=== PATIENT | female | born 1970 | race Caucasian/White ===

== ENCOUNTER 2016-11-14 07:15 | Day surgery (SDC) | payer OTHER ==
[~2016-11-14] VITALS: Ht 177.8 cm; Wt 82.4 kg
[2016-11-14] MEDS ORDERED: SODIUM BICARBONATE 4.2%, 5ML ONE (07:57)
[2016-11-14] MEDS ORDERED: LIDOCAINE 2%, 20ML ONE (07:57)
[2016-11-14 08:00] VITALS: BP 121/81
[2016-11-14] MEDS ORDERED: SODIUM CHLORIDE 0.9% 1,000 ML IV SCH (08:03)
[2016-11-14 10:33] LABS: GLUCOSE, CSF 53 mg/dL (40-80)
[2016-11-20 15:07] LABS: ALBUMIN CSF 20 mg/dL (11-48); ALBUMIN SERUM 4.3 g/dL (3.5-5.5); CSF IGG INDEX 0.5 (0.0-0.7); CSF/SERUM ALBUMIN INDEX 5 (0-8); IGG SERUM 888 mg/dL (700-1600); IGG SYNTHESIS RATE CSF -1.6 mg/day (-9.9 TO +3.3); IGG/ALBUMIN RATIO CSF 0.11 (0.00-0.25)
== END 2016-11-14 12:40 | disposition home or self-care (01) ==
LOC: OUT 07:15
PROVIDERS: ATTEND Psychiatry & Neurology Neurology
DX: G35 Multiple sclerosis (principal)
CPT/HCPCS: 36415; 62270; 77002; 77003; 82040; 82042; 82164; 82784; 82945; 83873; 84157; 86645; 86695; 86696; 86762; 86777; 86778; 87070; 87205; 89051; J3490

== ENCOUNTER → 2017-01-14 | Outpatient (CLI) | payer OTHER | END | disposition home or self-care (01) | LOC: CVU 08:41 | PROVIDERS: ATTEND Psychiatry & Neurology Neurology | DX: G46.4 Cerebellar stroke syndrome (principal) | CPT/HCPCS: 93306; 93880 ==

== ENCOUNTER 2018-10-15 09:34 | Day surgery (SDC) | payer OTHER ==
[2018-10-12 12:18] LABS: MICROSCOPIC AUTO
[2018-10-12 12:19] LABS: CULTURE INDICATED? NO
[~2018-10-15] VITALS: Ht 177.8 cm; Wt 76.0 kg
[~2018-10-15 09:34] MED LIST: ALBU8.5H8 INH; ALLERGY PILL; DOXY100T10 PO
[2018-10-15] MEDS ORDERED: LACTATED RINGERS 1,000 ML IV SCH (09:59)
[2018-10-15 10:13] VITALS: BP 115/80
[2018-10-15] MEDS ORDERED: MIDAZOLAM 1 MG/ML, 2ML ONE (10:56)
[2018-10-15] MEDS ORDERED: FENTANYL PF 100 MCG/2ML ONE (10:56)
[2018-10-15] MEDS ORDERED: PROPOFOL 10 MG/ML, 20ML ONE (11:27)
[2018-10-15] MEDS ORDERED: ONDANSETRON 2MG/ML, 2ML ONE (11:27)
[2018-10-15] MEDS ORDERED: DEXAMETHASONE 4 MG/ML, 1ML ONE (11:27)
[2018-10-15] MEDS ORDERED: LABETALOL 5MG/ML, 20ML IV PRN (12:00)
[2018-10-15] MEDS ORDERED: HYDROmorphone 2 MG/ML, 1ML IVPush PRN (12:00)
[2018-10-15] MEDS ORDERED: ACETAMINOPHEN 325 MG TABLET PO PRN (12:00)
[2018-10-15] MEDS ORDERED: KETOROLAC 30 MG/1 ML IV PRN (12:00)
[2018-10-15] MEDS ORDERED: ALBUTEROL SULFATE 2.5 MG/3 ML NPPB PRN (12:00)
[2018-10-15] MEDS ORDERED: MEPERIDINE/PF 25MG/0.5ML IVPush PRN (12:00)
[2018-10-15] MEDS ORDERED: FENTANYL PF 100 MCG/2ML IV PRN (12:00)
[2018-10-15] MEDS ORDERED: PROMETHAZINE 25 MG/ML, 1ML IV PRN (12:00)
[2018-10-15] MEDS ORDERED: hydrALAzine 20 MG/ML, 1ML IV PRN (12:00)
[2018-10-15] MEDS ORDERED: DIAZEPAM 5 MG/ML, 2ML IVPush PRN (12:00)
[2018-10-15] MEDS ORDERED: OXYcodone 5 MG/5 ML ORAL.SOL UDC PO PRN (12:00)
== END 2018-10-15 13:50 | disposition home or self-care (01) ==
LOC: OUT 09:34
PROVIDERS: ATTEND Obstetrics & Gynecology
DX: N95.0 Postmenopausal bleeding (principal); N80.9 Endometriosis, unspecified; F41.9 Anxiety disorder, unspecified; F17.200 Nicotine dependence, unspecified, uncomplicated; Z98.890 Other specified postprocedural states; Z79.899 Other long term (current) drug therapy; Z88.8 Allergy status to other drugs, medicaments and biological substances; Z83.3 Family history of diabetes mellitus; Z82.49 Family history of ischemic heart disease and other diseases of the circulatory system; Z79.01 Long term (current) use of anticoagulants
CPT/HCPCS: 36415; 58558; 81001; 84702; 88305; J1100; J2250; J2405; J2704; J3010; J7120